=== PATIENT | female | born 1990 | race Caucasian/White ===

== ENCOUNTER 2016-12-13 17:46 | Emergency (ER) | payer OTHER ==
[~2016-12-13] VITALS: Ht 170.2 cm; Wt 89.4 kg
[~2016-12-13 17:46] MED LIST: HYDR-971 PO
[2016-12-13 17:50] VITALS: BP 150/90
[2016-12-13 19:03] LABS: ALBUMIN 3.9 g/dL (3.4-5.0); ALBUMIN/GLOBULIN RATIO 1.1 (1.0-1.7); CALCIUM 8.7 mg/dL (8.5-10.1); CREATININE 0.8 mg/dL (0.6-1.0); GFR 85.4; POTASSIUM 3.6 mmol/L (3.5-5.1); TOTAL BILIRUBIN 0.2 mg/dL (0.2-1.0); TOTAL PROTEIN 7.5 g/dL (6.4-8.2)
--- NOTE | 2016-12-13 19:48 | PHYS DOC ---
General Stated Complaint: RT FOOT/ANKLE SWELLING/PAIN Time Seen by MD: 18:20 Source: patient Problems: History of Present Illness Initial Comments Patient here for right foot and ankle swelling. Patient says this started on . It continued until today. She has no history of injury or trauma in the area. She is never had this happen to her before. She says she has a fiery burning type sensation within her possible foot and ankle, which radiates up the right lower leg. She's noted no redness along with the swelling. She is able to ambulate home, albeit with discomfort. She also says she has some tingling in the toes. She's had no fever or chills. There's no URI symptoms or cough. There's no chest pain or shortness of breath. She has no nausea vomiting or abdominal pain. No change amount of bladder habits and she denies chance of . She has no other focal extremity or neurologic complaints. Patient states she's been treating swelling at home with ice without help. There is no other increasing or decreasing factors and she's been nothing else home for this. Patient's past history is otherwise remarkable for high blood pressure. She is on Depo. She smokes a pack of cigarettes daily. She is nonuser of ethanol. Allergies: Coded Allergies: meperidine (Verified Allergy, Intermediate, rash, 09/04/16) morphine (Verified Allergy, Intermediate, hives, 09/04/16) tramadol (Verified Allergy, Intermediate, hives, 09/04/16) Past Medical History Medical History: hypertension Surgical History: noncontributory Social History Smoker: less than 1 pack/day Alcohol: none Review of Systems All Other Systems: Reviewed and Negative Physical Exam General Appearance: WD/WN, no apparent distress Extremities: swelling, other Neurologic/Psychiatric: alert, normal mood/affect, oriented x 3 Skin: normal color Comments Generally this is a well-developed well-nourished white female in no acute distress. Vitals are as noted. Pertinent findings on physical exam shows the right lower extremity to exhibit 1+ pitting edema over the foot, ankle, and distal portion of the right lower leg when compared with left. However, there is really no redness or cords, really only minimal tenderness over the calf area. There is no signs of injury or trauma. The joint is stable in all planes of the ankle and foot. There is no focal tenderness. There are no distal foot or toe motor sensory or vascular deficits appreciated. Remainder of physical exam is clinically unremarkable. Orders, Labs, Meds Old charts note prior ER visits for chest pain, uncontrolled hypertension, and bronchospasm. Labs clear clinically unremarkable. Glucose is minimally elevated at 114. Uric acid and d-dimer are negative. X-rays of the right ankle show no acute fracture or dislocation. There is no other signs of acute injury per the emergency physician. 1940 Patient resting comfortably in the ER. I discussed with the patient uncertain cause of her right lower leg swelling. This may be some unrecalled trauma. There is certainly no evidence of DVT at this time. Patient seems very medically aware and was concerned about the possibility of blood clot, is reassured by clinical exam and negative d-dimer. I discussed with her that this likely will go away, but that if it does not she'll need to follow up with her primary care physician later this week. We discussed warning signs including increasing swelling, pain, especially redness in the externally. She voiced understanding need to follow up with primary care but also to return to the ER immediately if worse in anyway. She is also somewhat concerned about her blood pressure. Her blood pressure periodically rises on her, and she did have to take blood pressure medicine today. She was instructed to take an extra pill by her own physician if her diastolic pressure got over 105 which did earlier. At this time, at time of physician evaluation, is 139/88. She says this is quite good for her. She is encouraged to follow-up with her own primary care physician for blood pressure as well. I don't think blood pressures responsible for this unilateral lower extremity edema. There is no evidence of gout or renal impairment as well. As noted, she voiced understanding need to follow up with primary care or return to the ER sooner as needed if worsening anyway. We discussed home care including ice, elevation, use compression stockings as well. She looks well, in no acute discomfort or distress, okay for discharge home at this time. [email or web address] DRUMMOND MD Dec 13, 2016 18:25
[2016-12-13 19:51] LABS: BILIRUBIN,URINE NEG (NEG); CLARITY,URINE HAZY; COLOR,URINE YELLOW; GLUCOSE,URINE NEG (NEG)
[2016-12-13 19:52] LABS: BACTERIA,URINE MOD /HPF (0-FEW); NITRITE,URINE NEG (NEG); SQUAMOUS EPITHELIAL CELL,UR MANY /LPF; UROBILINOGEN,URINE 0.2 mg/dL (0.2 mg/dL)
[2016-12-13 19:53] LABS: YEAST,URINE PRESENT /HPF
--- NOTE | 2016-12-14 09:17 | RAD ---
Indication swelling. No history of injury. AP oblique and lateral views of the right ankle were obtained. There is some slight soft tissue swelling. Acute bony finding is not seen.
== END 2016-12-13 20:01 | disposition home or self-care (01) ==
LOC: ER 17:46
DX: M79.89 Other specified soft tissue disorders (principal); M79.661 Pain in right lower leg; R20.2 Paresthesia of skin; I10 Essential (primary) hypertension; Z88.8 Allergy status to other drugs, medicaments and biological substances; F17.210 Nicotine dependence, cigarettes, uncomplicated; Z88.5 Allergy status to narcotic agent
CPT/HCPCS: 36415; 73610; 80053; 81001; 84550; 85379; 99285